=== PATIENT | female | born 1990 | race Caucasian/White ===

== ENCOUNTER 2021-05-02 02:08 | Inpatient (IN) | payer BC, SELFPAY ==
[2021-05-02] VITALS (101 sets, daily range): BP systolic 80–145; BP diastolic 52–94; PULSE 62–117; RESP 16–18; TEMP 36.8–37.2; O2SAT 97–100; BMI 24.4
--- NOTE | 2021-05-02 02:39 | LDADM ---
This patient, Octavia Madrid, was admitted to Labor/Delivery/Recovery 104 on 05/02/21 at 02:08. Plans for labor, pain management and were discussed with patient. Patient/family oriented to hospital policies and general routines including ID bracelet, bed and alarms, visiting hours, pain management, procedures, bathroom and other care routines, personal items, smoking policy, room service/diet and guest tray routines, infant security routines, and visiting hours. Patient/Family are encouraged to report perceived risks to care and to ask questions if they do not understand what they are told or what they should do. See OBIX for further documentation.
[2021-05-02] MEDS: LACTATED RINGERS 1,000 ML 125 ML IV CONT ×3 (02:49→04:07)
[2021-05-02 02:55] LABS: Basophils Percent Auto 0.2 % (0.2-1.2); Eosinophils Absolute Auto 0.1 K/mm3 (0-0.3); Eosinophils Percent Auto 0.6 % (0-4.4); Hematocrit 35.6 % (37.0-47.0); Immature Granulocyte Absolute 0.05 K/mm3 (0.00-0.031); Immature Granulocyte Percent A 0.4 % (0-0.5); Lymphocytes Absolute Auto 3.26 K/mm3 (0.9-3.2); Mean Corpuscular HGB Conc 33.7 g/dl (32-36); Mean Corpuscular Hemoglobin 32.2 pg (26-34); Mean Corpuscular Volume 95.4 fl (80-100); Mean Platelet Volume 10.5 fl (7.4-10.4); Monocytes Absolute Auto 0.6 K/mm3 (0.1-0.6); Monocytes Percent Auto 5.6 % (2.6-8.5); Neutrophils Absolute Auto 7.2 K/mm3 (1.3-6.7); Neutrophils Percent Auto 64.2 % (45.5-73.1); Platelet Count Result 223 k/mm3 (150-375); Red Blood Count 3.73 M/mm3 (4.2-5.4); Red Cell Distribution Width 12.6 % (11.5-14.5); White Blood Count 11.3 K/mm3 (4.5-10.0)
--- NOTE | 2021-05-02 03:34 | WPDANESEPP ---
Anes - Eval Pre Procedure Procedure: labor epidural Date/Time: 05/02/21 03:34 Surgeon: pattie Preop Diagnosis: pain during labor Pre Op Diagnosis: CTX Patient Data Age: 31 Gender: F Height: 1.75 m Weight: 75 kg Last Vital Signs Temp 37.1 C 05/02/21 02:47 Pulse 93 05/02/21 03:33 Resp 18 05/02/21 02:47 BP 127/55 L 05/02/21 03:33 Pulse Ox 100 05/02/21 03:31 Allergies Allergy/AdvReac Type Severity Reaction Status Date / Time No Known Allergies Allergy Verified 07/27/19 13:32 Home Medications Medication Instructions Recorded Confirmed Type PNV cmb#95-ferrous fumarate-FA 1 tablet PO DAILY 07/27/19 05/02/21 History [] multivit 05-mxjn-eldaxi 1-dha 1 cap PO DAILY 04/12/21 05/02/21 History [PNV-DHA] Laboratory Tests 05/02/21 05/02/21 02:36 02:36 WBC 11.3 K/mm3 H K/mm3 (4.5-10.0) RBC 3.73 M/mm3 L M/mm3 (4.2-5.4) Hgb 12.0 g/dL D g/dL (12.0-15.0) Hct 35.6 % L % (37.0-47.0) MCV 95.4 fl fl (80-100) MCH 32.2 pg pg (26-34) MCHC 33.7 g/dl g/dl (32-36) RDW 12.6 % % (11.5-14.5) Plt Count 223 k/mm3 k/mm3 (150-375) MPV 10.5 fl H fl (7.4-10.4) Immature Gran % (Auto) 0.4 % % (0-0.5) Neut % (Auto) 64.2 % % (45.5-73.1) Lymph % (Auto) 29.0 % % (18.3-44.2) [place] % (Auto) 5.6 % % (2.6-8.5) Eos % (Auto) 0.6 % % (0-4.4) Baso % (Auto) 0.2 % % (0.2-1.2) Lymph # (Auto) 3.26 K/mm3 H K/mm3 (0.9-3.2) [place] # (Auto) 0.6 K/mm3 K/mm3 (0.1-0.6) Eos # (Auto) 0.1 K/mm3 K/mm3 (0-0.3) Baso # (Auto) 0.0 K/mm3 K/mm3 (0.0-0.1) Abs Immat Gran (auto) 0.05 K/mm3 H K/mm3 (0.00-0.031) Absolute Neuts (auto) 7.2 K/mm3 H K/mm3 (1.3-6.7) Absolute Nucleated RBC 0.0 K/mm3 K/mm3 (0.0-0.012) Nucleated RBC % 0.0 % % (0.0-0.2) RPR Pending Patient hx anesthesia problems: none Family hx anesthesia problems: none PMFSH Family History Family History Father Hypertension Gout Mother Osteoporosis Social History Social History Smoking status: Never smoker Substance use: never Gender identity (if verbalized by the patient): Female Spiritual care concerns: No Exam Day of Procedure 05/02/21 03:34
--- NOTE | 2021-05-02 06:03 | WPDHPUPDATE1 ---
History and Physical Update Update Date/Time: 05/02/21 06:03 31 yo at 40w1d who presents in labor. Pt reports regular contractions. She denies any vaginal bleeding or leakage of fluid. She endorses good FM. Her has been uncomplicated thus far. History and Physical has been reviewed, including an updated exam of the patient. There are NO changes in the patient's condition. Risks, benefits, and alternatives have been discussed and questions answered. Patient agrees to proceed with procedure. A/P: 31 yo at 40w1d in labor admit to L&D routine admission orders Rh+ GBS negative FHT cat 1 continuous EFM expectant management
--- NOTE | 2021-05-02 06:31 | PM.OBPNLAB ---
Pain Control Date/time seen: 05/02/21 06:31 Pain control: epidural Pelvic Exam Dilation (cm): 8 Effacement (%): 100 station: 0 Amniotic membrane status: Bulging Contractions Monitor mode: External Contraction pattern: Regular Status status: Category l Assessment and Plan Assessment: active labor Comments: AROM for scant amount of blood tinged fluid
[2021-05-02] MEDS: OXYTOCIN 30 UNITS/NS 500 ML 30 UNITS/500 ML BAG 999 UNITS IV CONT (07:39)
--- NOTE | 2021-05-02 07:51 | PM.OBPRVD ---
OB - Delivery Note Procedure Procedure: Patient pushed for a spontaneous vaginal delivery. The fetus was delivered atraumatically and placed on the maternal abdomen. The cord was clamped and cut after 1 minute of life. The cord was double clamped and cut and a segment of cord was collected for cord gases. Cord blood was collected for blood type and Coomb's testing. The placenta delivered spontaneously and was noted to be intact. The perineum was inspected and there was a 1st degree perineal laceration. The laceration was repaired with 3-0 vicryl in the usual fashion. The uterus was firm and good hemostasis was noted. The patient and fetus were stable in the delivery room. Intrapartal events: None Induction method: none Delivery monitor: external FHT Route of delivery: Episiotomy description: None Laceration Description: Perineal - 1st Degree Delivery repair: vicryl Specimen: No Quantitative Blood Loss (ml): 150 Anesthesia type: Epidural Disposition: floor () Complications: No immediate complications Baby Date of : 05/02/21 Time of : 07:35 Weeks of gestation at delivery: 40 gender: Male Weight (pounds): 6 Weight (ounces): 11 presentation: vertex position: Right Occiput Anterior Placenta delivery description: Spontaneous cord vessel description: 3 Vessels score one minute: 8 score five minutes: 9
[2021-05-02 08:01] LABS: Rapid Plasma Reagin Non-Reactive (NonReactive)
[2021-05-02] MEDS: OXYTOCIN 30 UNITS/NS 500 ML 30 UNITS/500 ML BAG 125 UNITS IV CONT (08:12)
--- NOTE | 2021-05-02 11:03 | OBPPTRN ---
Patient transferred to post room # 285 via wheelchair. Support person present. Oriented to unit, room, information board, rooming in, admission packet and security measures. Patient verbalizes understanding.
[2021-05-03] VITALS: BP 100/62; PULSE 70; RESP 20; TEMP 36.9; O2SAT 97
[2021-05-03] MEDS: IBUPROFEN 600 MG TABLET PO ×2 (04:28→10:21)
[2021-05-03 04:30] VITALS: BP 105/71; PULSE 72; RESP 18; TEMP 36.7; O2SAT 98
[2021-05-03 06:20] LABS: Hematocrit 31.2 % (37.0-47.0); Hemoglobin 10.6 g/dL (12.0-15.0)
[2021-05-03 08:25] VITALS: BP 116/66; PULSE 68; RESP 16; TEMP 36.8; O2SAT 100
--- NOTE | 2021-05-03 08:50 | PM.OBPNVD ---
OB - PN: Subj Subjective Date/time seen: 05/03/21 12:41 Narrative: Pain OK. Would like circumcision for son. Would like to go home. OB - PN: Obj Data Labs CBC & Chem 7: 05/03/21 04:21 Labs: Laboratory Results - last 24 hr 05/03/21 04:21 Hgb 10.6 L Hct 31.2 L OB - PN A/P Plan Comments: A: PPD#1, doing well. P: Reviewed circ. Home to f/u 6 weeks. Exam Psych: Other: AVSS ABD soft, nontender, fundus firm EXT nontender
--- NOTE | 2021-05-03 09:45 | PC.NURSE ---
Mother is able to independently latch infant with appropriate positioning/alignment. She denies any nipple discomfort, is feeding as required and waking to feed if needed. has had at least 8 effective feedings in the past 24 hours, and is currently meeting outcomes for weight, output, jaundice and feeding frequencies. Mother states she feels confident to continue effective at home. Reviewed transition to breast milk, signs of adequate intake, and engorgement/relief. Instructed to call ICP if intake/output less than required. Reviewed regular medications mother is taking. Information provided per Kaity. Reviewed community resources on the [facility] website and in the Mom/Baby guide. Information on outpatient services provided. Mother has no further questions at this time.
[2021-05-03] MEDS: MULTIVIT/MIN/PREN/FOL AC/IRON TABLET 1 TAB PO (10:21)
--- NOTE | 2021-05-03 10:25 | WPDANLDPN2 ---
Anes-Prog Note L&D Date/Time: 05/03/21 10:25 Comfortable throughout: labor and delivery Neuraxial method: epidural Epidural/Spinal procedure site: clean & non-tender Neuro status: Neuro function grossly intact. Cardiovascular status: normal Respiratory status: normal Airway patency: baseline Mental status: baseline Post-Op hydration status: normal Vital Signs: Last Vital Signs Temp 36.8 C 05/03/21 08:25 Pulse 68 05/03/21 08:25 Resp 16 05/03/21 08:25 BP 116/66 05/03/21 08:25 Pulse Ox 100 05/03/21 08:25 Pain score (VAS): 0 Post-procedural complaints: none Patient feedback: Patient satisfied with anesthetic care.
--- NOTE | 2021-05-03 12:42 | PM.OBDSVD ---
DS: Admitting Diagnosis Discharge Date 05/03/21 Admitting Diagnosis IUP at 40 1/7 weeks Labor DS: Discharge Diagnosis Discharge Diagnosis (1) (normal spontaneous vaginal delivery): Code(s): O80 - Encounter for full-term uncomplicated delivery Status: Acute OB - DS: Summary OB Procedures : None OB Procedures Intrapartum: Spontaneous Vag Delivery OB Procedures: : None Time Spent with Patient Time attestation: Total time spent providing and/or coordinating discharge services: DS: Data Data Completed and Pending Labs on day of discharge: Labs from last 24 hours 05/03/21 04:21 Hgb 10.6 L Hct 31.2 L Discharge Plan Discharge Attending physician on discharge: Guerrero Masterson Discharging Clinician: Guerrero Masterson Patient Disposition: Home, Self-Care Activity: pelvic rest Diet: regular Discharge Instructions: Education: Mom and Baby Guide Given to: Mother Follow-Up: Call your delivering provider's office for an appointment to be seen in: 6 Weeks Mom and baby should come to the [facility] for the follow-up appointment. Appointment Date/Time: May 04, 2021 at 9:00 am What to expect at your follow-up visit: Physical Assessment Call [phone] if you are unable to keep your appointment time. BREAST CARE: * Wear a snug supportive bra. * For engorgement discomfort: Breast Feeding: * Apply warm moist washcloths * Express milk as needed to relieve engorgement * Wear loose clothing * For sore nipples: * Identify correct latch-on * Apply warm moist washcloths before and after nursing * Air dry nipples after nursing * May apply Lansinoh cream to nipples PERINEAL CARE: * Until bleeding stops, use your amelia bottle after urinating * Change your pad frequently throughout the day * You may take sitz baths several times a day (fill your bathtub with warm water and soak for 20 minutes.) Do NOT bathe in the water * No tub baths until seen by your physician - You may shower ACTIVITY: * Rest as much as possible. * Do not exercise or lift anything heavier than your baby (such as laundry or other children.) * Avoid stairs or driving as much as possible. * Do not put anything into the vagina. No douching, tampons, or sexual activity until seen by physician. NOTIFY PHYSICIAN IF YOU HAVE ANY QUESTIONS OR IF ANY OF THE FOLLOWING SYMPTOMS OCCUR: * If your stitches become red, swollen, or more painful than what you have experienced in the hospital. * If your vaginal bleeding becomes foul smelling. * If your vaginal bleeding becomes more heavy than a period or if your bleeding changes from pink to bright red. However, you may pass an occasional walnut-sized clot once or twice for the first week . * If you experience a sharp, shooting pain in you calves. * If you discover a hard, reddened area on your breast or if you experience flu-like symptoms. DIET: * Eat regular, well-balanced meals. * Drink plenty of fluids daily. If , drink to thirst.Call or return if temperature above 100.4? F, increased abdominal pain, increased vaginal bleeding or any new problems. Stand Alone Forms: General Discharge Information Follow-up/Referrals: Guerrero Masterson MD [Physician] - 6 Weeks Discharge Medications: New ibuprofen 600 mg tablet 600 mg PO Q6H PRN (Reason: cramps) Qty: 30 RF: 0 Dermoplast (with menthol) 20-0.5 % Aerosol 1 spray topical PRN PRN (Reason: Perineal Discomfort) RF: 0 Preparation H (Jake Denny) 50 % Pads, Medicated 1 pad topical PRN PRN (Reason: Perineal Discomfort) RF: 0 Continued PNV cmb#95-ferrous fumarate-FA [] 28 mg iron- 800 mcg Tablet 1 tablet PO DAILY RF: 0 Discontinued PNV-DHA 27 mg iron-1 mg -300 mg Capsule 1 cap PO DAILY RF: 0 Date of admission: 05/02/21 02:08 Primary Care Provider: Vero,Jesus Chapa
[2021-05-04 08:50] VITALS: BP 140/88; PULSE 87; RESP 16; TEMP 37.1; O2SAT 100
== END 2021-05-03 14:10 | disposition home or self-care (01) | DRG 807 ==
LOC: ANHLDR 02:34 → ANHOB2 11:54
PROVIDERS: Admitting Provider Student in an Organized Health Care Education/Training Program; PCP Family Medicine; Visit Provider Obstetrics & Gynecology
DX: O70.0 First degree perineal laceration during delivery (principal); Z37.0 Single live birth; Z3A.40 40 weeks gestation of pregnancy
CPT/HCPCS: 36415; 85014; 85018; 85025; 86592; 86850; 86900; 86901; A9270; J2590; J2795; J7120

== ENCOUNTER 2023-06-07 15:43 | Inpatient (IN) | payer BC, SELFPAY ==
[2023-06-07] VITALS (83 sets, daily range): BP systolic 88–144; BP diastolic 35–87; PULSE 71–141; RESP 18; TEMP 36.7–36.9; O2SAT 77–100; BMI 25.2
[2023-06-07 17:16] LABS: Basophils Percent Auto 0.4 % (0.2-1.2); Eosinophils Percent Auto 0.4 % (0-4.4); Hematocrit 33.1 % (37.0-47.0); Hemoglobin 11.2 g/dL (12.0-15.0); Immature Granulocyte Absolute 0.03 K/mm3 (0.00-0.031); Immature Granulocyte Percent A 0.3 % (0-0.5); Lymphocytes Absolute Auto 3.37 K/mm3 (0.9-3.2); Lymphocytes Percent Auto 34.6 % (18.3-44.2); Mean Corpuscular HGB Conc 33.8 g/dl (32-36); Mean Corpuscular Hemoglobin 31.8 pg (26-34); Mean Platelet Volume 10.3 fl (7.4-10.4); Monocytes Absolute Auto 0.5 K/mm3 (0.1-0.6); Monocytes Percent Auto 5.3 % (2.6-8.5); Neutrophils Absolute Auto 5.8 K/mm3 (1.3-6.7); Platelet Count Result 240 k/mm3 (150-375); Red Blood Count 3.52 M/mm3 (4.2-5.4); Red Cell Distribution Width 12.4 % (11.5-14.5); White Blood Count 9.8 K/mm3 (4.5-10.0)
[2023-06-07] MEDS: LACTATED RINGERS 1,000 ML 125 ML IV CONT (17:20)
--- NOTE | 2023-06-07 17:51 | WPDANESEPP ---
Anes - Eval Pre Procedure Procedure: Labor epidural Date/Time: 06/07/23 17:51 Preop Diagnosis: Abdominal pain with contractions Pre Op Diagnosis: Labor Patient Data Age: 33 Gender: F Height: 1.75 m Weight: 77.5 kg Last Vital Signs Pulse 82 06/07/23 17:31 BP 138/86 06/07/23 17:31 O2 Del Method Room Air 06/07/23 17:14 Allergies Allergy/AdvReac Type Severity Reaction Status Date / Time No Known Allergies Allergy Verified 05/16/23 14:19 Home Medications Medication Instructions Recorded Confirmed Type vit no.95-ferrous 1 tablet PO DAILY 07/27/19 05/16/23 History fumarate 28 mg-folic acid 800 mcg tablet () Laboratory Tests 06/07/23 17:07 WBC 9.8 K/mm3 (4.5-10.0) RBC 3.52 L M/mm3 (4.2-5.4) Hgb 11.2 L g/dL (12.0-15.0) Hct 33.1 L % (37.0-47.0) MCV 94.0 fl (80-100) MCH 31.8 pg (26-34) MCHC 33.8 g/dl (32-36) RDW 12.4 % (11.5-14.5) Plt Count 240 k/mm3 (150-375) MPV 10.3 fl (7.4-10.4) Immature Gran % (Auto) 0.3 % (0-0.5) Neut % (Auto) 59.0 % (45.5-73.1) Lymph % (Auto) 34.6 % (18.3-44.2) [place] % (Auto) 5.3 % (2.6-8.5) Eos % (Auto) 0.4 % (0-4.4) Baso % (Auto) 0.4 % (0.2-1.2) Lymph # (Auto) 3.37 H K/mm3 (0.9-3.2) [place] # (Auto) 0.5 K/mm3 (0.1-0.6) Eos # (Auto) 0.0 K/mm3 (0-0.3) Baso # (Auto) 0.0 K/mm3 (0.0-0.1) Abs Immat Gran (auto) 0.03 K/mm3 (0.00-0.031) Absolute Neuts (auto) 5.8 K/mm3 (1.3-6.7) Absolute Nucleated RBC 0.0 K/mm3 (0.0-0.012) Nucleated RBC % 0.0 % (0.0-0.2) RPR Pending : gestational age HCG: positive Patient hx anesthesia problems: none Family hx anesthesia problems: none Results Review: All pre-operative results and documents have been reviewed as part of the pre-operative evaluation. [facility] Past Medical History Medical History Overweight (BMI 25.0-29.9) and not yet delivered Family History Family History Father Gout Hypertension High triglycerides BPH (benign prostatic hyperplasia) Mother Osteoporosis Social History Social History Smoking status: Never smoker Second hand tobacco smoke exposure: No Substance use: never Lack of Transportation: No Lack of Food: Never True Current Housing: I Have Housing Concerned About Future Housing: No Difficulty Paying Gas/Electric Bills: No Difficulty Paying for Meds: No Currently Unemployed: No Education: Master's Degree or Higher Difficulty w/ Childcare or Family Care: No Gender identity (if verbalized by the patient): Female Spiritual care concerns: No Exam Day of Procedure 06/07/23 17:51 Patient weight: overweight
[2023-06-07] MEDS: ONDANSETRON INJ 4 MG/2 ML VIAL IV PUSH (19:00)
[2023-06-07] MEDS: OXYTOCIN 30 UNITS/NS 500 ML 30 UNITS/500 ML BAG 999 UNITS IV CONT (19:09)
--- NOTE | 2023-06-07 19:19 | WPDOBADMIT ---
Obstetrics - Admit Note Admission Note: record reviewed. Additions to the history and/or subsequent changes in the physical findings follow. 33 y/o at 40 weeks gestation here with contractions. Labor was diagnosed. She is now comfortable with epidural. Had SROM with clear fluid, now feeling pressure. AVSS NST reactive TOCO: contractions every 2-3 min ABD soft, nontender, gravid EXT nontender Cervix Complete / +2 A: IUP at term, with labor. P: Begin pushing.
--- NOTE | 2023-06-07 19:21 | PM.OBPRVD ---
OB - Delivery Note Procedure Delivery date: 06/07/23 Procedure: Induction method: None Delivery monitor: External FHT and External Uterine Route of delivery: Episiotomy description: None Laceration Description: None Specimen: Yes (cord blood) Quantitative Blood Loss (ml): 120 Anesthesia type: Epidural Disposition: PACU Complications: None Narrative: 33 y/o at 40 weeks gestation who presented to the hospital with contractions. Labor was diagnosed. She received an epidural for pain control. Her labor progressed and her cervix dilated completely, and she had SROM with clear fluid. She pushed with good effort and delivered the infant's head to the perineum, followed by the body. The nose and mouth were bulb suctioned. After a delay, the cord was clamped and cut. The was handed off the field. Cord blood was collected. The placenta delivered spontaneously and was grossly normal in appearance. The usual 3 vessel cord was noted. There were no lacerations. Needle and instrument counts were correct. The patient was taken to recovery room in stable condition. The went to the nursery in stable condition. I was present and scrubbed for the entire delivery. Baby Date of : 06/07/23 Time of : 19:04 Weeks of gestation at delivery: 40 gender: Female Weight (pounds): 7 Weight (ounces): 0 presentation: vertex position: Left Occiput Anterior Placenta delivery description: Spontaneous and Normal Configuration Cord Vessel Description: 3 Vessels and Delayed Cord Clamping score one minute: 9 score five minutes: 9
--- NOTE | 2023-06-07 19:23 | P.DS_ITS ---
DS: Admitting Diagnosis Discharge Date 06/08/23 Admitting Diagnosis IUP at 40 weeks Labor DS: Discharge Diagnosis Discharge Diagnosis (1) (normal spontaneous vaginal delivery): Code(s): O80 - Encounter for full-term uncomplicated delivery Status: Acute OB - DS: Summary OB Procedures : None OB Procedures Intrapartum: Spontaneous Vag Delivery OB Procedures: : None Time Spent with Patient Time attestation: Total time spent providing and/or coordinating discharge services: DS: Data Data Completed and Pending Labs on day of discharge: Labs from last 24 hours 06/07/23 17:07 WBC 9.8 RBC 3.52 L Hgb 11.2 L Hct 33.1 L MCV 94.0 MCH 31.8 MCHC 33.8 RDW 12.4 Plt Count 240 MPV 10.3 Immature Gran % (Auto) 0.3 Neut % (Auto) 59.0 Lymph % (Auto) 34.6 [place] % (Auto) 5.3 Eos % (Auto) 0.4 Baso % (Auto) 0.4 Lymph # (Auto) 3.37 H [place] # (Auto) 0.5 Eos # (Auto) 0.0 Baso # (Auto) 0.0 Abs Immat Gran (auto) 0.03 Absolute Neuts (auto) 5.8 Absolute Nucleated RBC 0.0 Nucleated RBC % 0.0 RPR Pending Blood Type O Positive Antibody Screen Negative Discharge Plan Discharge Attending physician on discharge: Guerrero Masterson Discharging Clinician: Guerrero Masterson Patient Disposition: Home, Self-Care Activity: pelvic rest Diet: regular Discharge Instructions: Call or return if temperature above 100.4? F, increased abdominal pain, increased vaginal bleeding or any new problems. Stand Alone Forms: General Discharge Information Follow-up/Referrals: Guerrero Masterson MD [Physician] - 6 Weeks Discharge Medications: New ibuprofen 600 mg tablet 600 mg PO Q6H PRN (Reason: cramps) Qty: 30 0RF Continued PNV cmb#95-ferrous fumarate-FA [] 28 mg iron- 800 mcg Tablet 1 tablet PO DAILY Date of admission: 06/07/23 15:43 Primary Care Provider: Vero,Jesus Kirby Admitting Provider: Guerrero Masterson Attending physician on admission: Guerrero Masterson Condition: Stable
[2023-06-07] MEDS: OXYTOCIN 30 UNITS/NS 500 ML 30 UNITS/500 ML BAG 125 UNITS IV CONT (19:48)
[2023-06-07] MEDS: IBUPROFEN 600 MG TABLET PO (21:23)
--- NOTE | 2023-06-07 22:24 | PC.NURSE ---
Patient transferred to post room # 288 via ( W/C). Support person present. Oriented to unit, room, information board, rooming in, admission packet and security measures. Patient verbalizes understanding.
[2023-06-08 04:56] VITALS: BP 103/69; PULSE 68; RESP 18; TEMP 36.6; O2SAT 98
[2023-06-08 05:41] LABS: Hematocrit 31.8 % (37.0-47.0); Hemoglobin 10.6 g/dL (12.0-15.0)
--- NOTE | 2023-06-08 09:08 | PM.OBPNVD ---
OB - PN: Subj Subjective Date/time seen: 06/08/23 09:08 Narrative: Pain OK. Would like to go home. OB - PN: Obj Data Labs 06/08/23 05:01 Labs: Laboratory Results - last 24 hr 06/07/23 06/08/23 17:07 05:01 WBC 9.8 RBC 3.52 L Hgb 11.2 L 10.6 L Hct 33.1 L 31.8 L MCV 94.0 MCH 31.8 MCHC 33.8 RDW 12.4 Plt Count 240 MPV 10.3 Immature Gran % (Auto) 0.3 Neut % (Auto) 59.0 Lymph % (Auto) 34.6 [place] % (Auto) 5.3 Eos % (Auto) 0.4 Baso % (Auto) 0.4 Lymph # (Auto) 3.37 H [place] # (Auto) 0.5 Eos # (Auto) 0.0 Baso # (Auto) 0.0 Abs Immat Gran (auto) 0.03 Absolute Neuts (auto) 5.8 Absolute Nucleated RBC 0.0 Nucleated RBC % 0.0 Blood Type O Positive Antibody Screen Negative OB - PN A/P Plan Comments: A: PPD#1, doing well. P: Home to f/u 6 weeks. Exam Psych: Other: AVSS ABD soft, nontender, fundus firm EXT nontender
[2023-06-08] MEDS: IBUPROFEN 600 MG TABLET PO (10:39)
[2023-06-08] MEDS: MULTIVIT/MIN/PREN/FOL AC/IRON TABLET 1 TAB PO (10:39)
[2023-06-08 10:40] VITALS: BP 115/82; PULSE 73; RESP 18; TEMP 36.8
--- NOTE | 2023-06-08 12:27 | WPDANLDPN2 ---
Anes-Prog Note L&D Date/Time: 06/08/23 12:27 Comfortable throughout: labor and delivery Neuraxial method: epidural Epidural/Spinal procedure site: clean & non-tender Neuro status: Neuro function grossly intact. Cardiovascular status: normal Respiratory status: normal Airway patency: baseline Mental status: baseline Post-Op hydration status: normal Vital Signs: Last Vital Signs Temp 36.8 C 06/08/23 10:40 Pulse 73 06/08/23 10:40 Resp 18 06/08/23 10:40 BP 115/82 06/08/23 10:40 Pulse Ox 98 06/08/23 04:56 O2 Del Method Room Air 06/07/23 22:56 Pain score (VAS): 2/10 I/O: Intake & Output 06/07/23 06/08/23 06/08/23 23:59 07:59 15:59 Intake Total 1500 250 Output Total 230 Balance 1270 250 Post-procedural complaints: none Patient feedback: Patient satisfied with anesthetic care.
[2023-06-08 13:20] VITALS: BP 114/74; PULSE 66; RESP 18; TEMP 37.2
[2023-06-08 19:26] VITALS: BP 124/78; PULSE 76; RESP 18; TEMP 36.9; O2SAT 99
[2023-06-08 21:57] LABS: Rapid Plasma Reagin Non-Reactive (NonReactive)
[2023-06-11 10:13] VITALS: BP 129/89; PULSE 87; RESP 18; O2SAT 100
== END 2023-06-08 20:50 | disposition home or self-care (01) | DRG 807 ==
LOC: ANHLDR 19:24 → ANHOB2 22:31
PROVIDERS: Admitting Provider Obstetrics & Gynecology; PCP Family Medicine; Visit Provider Obstetrics & Gynecology
DX: O80 Encounter for full-term uncomplicated delivery (principal); Z37.0 Single live birth; Z3A.40 40 weeks gestation of pregnancy
CPT/HCPCS: 36415; 85014; 85018; 85025; 86592; 86850; 86900; 86901; A9270; J2405; J2590; J2795; J7120